=== PATIENT | female | born 1990 | race Caucasian/White ===

== ENCOUNTER 2016-08-30 10:31 | Emergency (ER) | payer OTHER ==
[2016-08-30 10:49] VITALS: BP 137/90
--- NOTE | 2016-08-30 11:16 | EDM.PDOC ---
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 Patient should be approximately 6 weeks at this juncture and indicated she started spotting yesterday and the painless bleeding has been intermittent thru today.] Review of systems: As per history of present illness and below otherwise all systems reviewed and negative. Past medical history: As per history of present illness and as reviewed below otherwise noncontributory. Surgical history: As per history of present illness and as reviewed below otherwise noncontributory. Social history: No reported history of drug or alcohol abuse. Family history: As per history of present illness and as reviewed below otherwise noncontributory. Physical exam: HEENT: Atraumatic, normocephalic, pupils reactive, negative for conjunctival pallor or scleral icterus, mucous membranes moist, throat clear, neck supple, nontender, trachea midline. Lungs: Clear to auscultation, breath sounds equal bilaterally, chest nontender. Heart: S1S2, regular, negative for clicks, rubs, or JVD. Abdomen: Soft, nondistended, nontender. Negative for masses or hepatosplenomegaly. Negative for costovertebral tenderness. Pelvis: Stable nontender. Genitourinary: Deferred. Rectal: Deferred. Extremities: Atraumatic, negative for cords or calf pain. Neurovascular unremarkable. Neuro: Awake, alert, oriented. Cranial nerves II through XII unremarkable. Cerebellum unremarkable. Motor and sensory unremarkable throughout. Exam nonfocal. Diagnostics: [CBC, CMP, Rh, UA, hCG, a transvaginal ultrasound] Therapeutics: [Again 300 Max IM] Impression: [Threatened AB] Plan: [Progress followup with IVF doctor tomorrow] Definitive disposition and diagnosis as appropriate pending reevaluation and review of above. 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: Reports: Endometrial ablation, Endometriosis, Polycystic Ovaries Social & Family History - Family History Family Medical History: Noncontributory - Tobacco Use Smoking Status *Q: Never Smoker - Recreational Drug Use Recreational Drug Use: No ED ROS GENERAL - Review of Systems Review Of Systems: See Below (See history of present illness) ED EXAM, GENERAL - Physical Exam Exam: See Below (See history of present illness) Course - Vital Signs Last Recorded V/S: Last Vital Signs Temp 36.2 C 08/30/16 10:46 Pulse 113 H 08/30/16 10:46 Resp 18 08/30/16 10:46 BP 137/90 08/30/16 10:46 Pulse Ox 97 08/30/16 10:46 - Orders/Labs/Meds Orders: Active Orders 24 hr Category Date Time Status OB 1st Tri Sgl 1st Gest [US] Stat Exams 08/30/16 10:32 Taken Labs: Laboratory Tests 08/30/16 08/30/16 08/30/16 Range/Units 10:35 10:35 10:46 WBC 8.70 (4.0-11.0) K/uL RBC 5.23 (4.30-5.90) M/uL Hgb 15.8 (12.0-16.0) g/dL Hct 45.1 (36.0-46.0) % MCV 86.2 (80.0-98.0) fL MCH 30.2 (27.0-32.0) pg MCHC 35.0 (31.0-37.0) g/dL RDW Std Deviation 38.3 (28.0-62.0) fl RDW Coeff of Jacqui 12 (11.0-15.0) % Plt Count 242 (150-400) K/uL MPV 8.80 (7.40-12.00) fL Neut % (Auto) 75.7 (48.0-80.0) % Lymph % (Auto) 10.5 L (16.0-40.0) % Swisher % (Auto) 10.2 (0.0-15.0) % Eos % (Auto) 3.3 (0.0-7.0) % Baso % (Auto) 0.3 (0.0-1.5) % Neut # 6.6 H (1.4-5.7) K/uL Lymph # 0.9 (0.6-2.4) K/uL Swisher # 0.9 H (0.0-0.8) K/uL Eos # 0.3 (0.0-0.7) K/uL Baso # 0.0 (0.0-0.1) K/uL HCG, Quant mIU/mL Urine Color YELLOW Urine Appearance CLEAR Urine pH 5.5 (5.0-8.0) Ur Specific Yoder <= 1.005 (1.001-1.035) Urine Protein NEGATIVE (NEGATIVE) mg/dL Urine Glucose (UA) NEGATIVE (NEGATIVE) mg/dL Urine Ketones NEGATIVE (NEGATIVE) mg/dL Urine Occult Blood LARGE H (NEGATIVE) Urine Nitrite NEGATIVE (NEGATIVE) Urine Bilirubin NEGATIVE (NEGATIVE) Urine Urobilinogen 0.2 (<2.0) EU/dL Ur Leukocyte Esterase NEGATIVE (NEGATIVE) Urine RBC 0-1 (0-2/HPF) Urine WBC 1-2 (0-5/HPF) Ur Epithelial Cells RARE (NONE-FEW) Urine Bacteria RARE (NEGATIVE) Urine HCG, Qual POSITIVE (NEGATIVE) Blood Type Antibody Screen 08/30/16 08/30/16 Range/Units 10:46 10:46 WBC (4.0-11.0) K/uL RBC (4.30-5.90) M/uL Hgb (12.0-16.0) g/dL Hct (36.0-46.0) % MCV (80.0-98.0) fL MCH (27.0-32.0) pg MCHC (31.0-37.0) g/dL RDW Std Deviation (28.0-62.0) fl RDW Coeff of Jacqui (11.0-15.0) % Plt Count (150-400) K/uL MPV (7.40-12.00) fL Neut % (Auto) (48.0-80.0) % Lymph % (Auto) (16.0-40.0) % [place] % (Auto) (0.0-15.0) % Eos % (Auto) (0.0-7.0) % Baso % (Auto) (0.0-1.5) % Neut # (1.4-5.7) K/uL Lymph # (0.6-2.4) K/uL Swisher # (0.0-0.8) K/uL Eos # (0.0-0.7) K/uL Baso # (0.0-0.1) K/uL HCG, Quant 965.4 mIU/mL Urine Color Urine Appearance Urine pH (5.0-8.0) Ur Specific Yoder (1.001-1.035) Urine Protein (NEGATIVE) mg/dL Urine Glucose (UA) (NEGATIVE) mg/dL Urine Ketones (NEGATIVE) mg/dL Urine Occult Blood (NEGATIVE) Urine Nitrite (NEGATIVE) Urine Bilirubin (NEGATIVE) Urine Urobilinogen (<2.0) EU/dL Ur Leukocyte Esterase (NEGATIVE) Urine RBC (0-2/HPF) Urine WBC (0-5/HPF) Ur Epithelial Cells (NONE-FEW) Urine Bacteria (NEGATIVE) Urine HCG, Qual (NEGATIVE) Blood Type A NEGATIVE Antibody Screen NEGATIVE Meds: Medications Discontinued Medications Generic Name Dose Route Start Last Admin Trade Name Lawrenceq PRN Reason Stop Dose Admin Rho Immune Globulin 300 mcg 08/30/16 11:54 Rhophylac IM 08/30/16 11:55 ONETIME ONE Rho Immune Globulin 300 mcg 08/30/16 12:27 Rhophylac IM 08/30/16 12:28 ONETIME ONE Rho Immune Globulin 300 mcg 08/30/16 13:00 Rhophylac IM 08/30/16 13:01 ONETIME ONE Departure - Departure Time of Disposition: 12:03 Disposition: Home, Self-Care 01 Condition: good Clinical Impression: Threatened Instructions: Threatened Miscarriage Referrals: PCP,None [Primary Care Provider] - Forms: ED Department Discharge Additional Instructions: The following information is given to patients seen in the emergency department who are being discharged to home. This information is to outline your options for follow-up care. We provide all patients seen in our emergency department with a follow-up referral. The need for follow-up, as well as the timing and circumstances, are variable depending upon the specifics of your emergency department visit. If you don't have a primary care physician on staff, we will provide you with a referral. We always advise you to contact your personal physician following an emergency department visit to inform them of the circumstance of the visit and for follow-up with them and/or the need for any referrals to a consulting specialist. The emergency department will also refer you to a specialist when appropriate. This referral assures that you have the opportunity for follow-up care with a specialist. All of these measure are taken in an effort to provide you with optimal care, which includes your follow-up. Under all circumstances we always encourage you to contact your private physician who remains a resource for coordinating your care. When calling for follow-up care, please make the office aware that this follow-up is from your recent emergency room visit. If for any reason you are refused follow-up, please contact the [facility] Emergency Department at and asked to speak to the emergency department charge nurse. Followup with your doctor tomorrow Complete pelvic rest Return to ED as needed as discussed <Ute Zuniga - Last Filed: 08/30/16 15:40> ED HPI GENERAL MEDICAL PROBLEM - History of Present Illness INITIAL COMMENTS - FREE TEXT/NARRATIVE: Please note pt. was given RhoGam for A- status.
[2016-08-30] MEDS ORDERED: Rho(D) Immune Globulin 300 MCG/2 ML Syringe IM ONE ×3 (11:54→13:00)
--- NOTE | 2016-08-31 16:55 | US ---
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 Site : 1990 Study: US OB Pelvis [id number]/26/2017 11:20:05 AM Ordering Physician: Doctor Simental Final Report: Indication : IVF 1 month ago. Bleeding for 3 days. FINDINGS: An endovaginal pelvic ultrasound shows a uterus of normal size, contour, echogenicity. Mild heterogeneity of the endometrial stripe which measures 1.2 cm in thickness. No fluid collections in the endometrial canal. Normal appearance of the ovaries with the right ovary measuring 4.7 x 3.6 x 1.9 cm and left ovary measuring 3.1 x 2.9 x 1.9 cm. Color and spectral Doppler analysis shows normal arterial venous blood flow to both ovaries. No free fluid in the pelvis. IMPRESSION: Mild heterogeneity of the endometrial canal which is a nonspecific finding. No intra or extra uterine identified. An ectopic cannot be excluded based on this study. Recommend continued close interval sonographic laboratory followup. Dictated by Tim Olmos MD @ 08/30/2016 11:53:07 AM Dictated by: Tim Olmos MD @ 08/30/2016 11:53:16 (Electronic Signature) Report Signed by Proxy and Original Signed Document filed in the Medical Record. [facility]
== END 2016-08-30 13:07 | disposition home or self-care (01) ==
LOC: MW.ED 10:31
DX: O20.0 Threatened abortion (principal); Z79.899 Other long term (current) drug therapy
CPT/HCPCS: 36415; 76801; 81001; 81025; 84702; 85025; 86850; 86900; 86901; 96372; 99284; J2790; 99283

== ENCOUNTER 2017-02-16 07:32 | Emergency (ER) | payer OTHER ==
[2017-02-16] MEDS ORDERED: Sodium Chloride 0.9% 10 ML Syringe FLUSH PRN (07:42)
[2017-02-16] MEDS ORDERED: Sodium Chloride 0.9% 2.5 ML Syringe FLUSH PRN (07:42)
[2017-02-16] MEDS ORDERED: Sodium Chloride 0.9% 1,000 ML IV ONE (07:42)
--- NOTE | 2017-02-16 07:44 | EDM.PDOC ---
[id number]: 15 WEEKS - BLEEDING BUT NO PAIN Time Seen by Provider: 02/16/17 07:35 Source of Information: Reports: Patient History Limitations: Reports: No Limitations - History of Present Illness INITIAL COMMENTS - FREE TEXT/NARRATIVE: History of present illness: []Patient's 15 weeks via IVF [place] and started bleeding this morning. She denies passing any clots or tissue and has no pain or cramping. She denies any trauma, fevers or diarrhea. Patient does have nausea and vomiting. Patient had an ultrasound in [place] days ago showing a subchorionic hemorrhage she had no bleeding at that time. Review of systems: As per history of present illness and below otherwise all systems reviewed and negative. Past medical history: As per history of present illness and as reviewed below otherwise noncontributory. Surgical history: As per history of present illness and as reviewed below otherwise noncontributory. Social history: No reported history of drug or alcohol abuse. Family history: As per history of present illness and as reviewed below otherwise noncontributory. Physical exam: General: Well developed, well nourished in NAD HEENT: Atraumatic, normocephalic, pupils reactive, negative for conjunctival pallor or scleral icterus, mucous membranes moist, throat clear, neck supple, nontender, trachea midline. Lungs: Clear to auscultation, breath sounds equal bilaterally, chest nontender. Heart: S1S2, regular, negative for clicks, rubs, or JVD. Abdomen: Soft, nondistended, nontender. Negative for masses or hepatosplenomegaly. Negative for costovertebral tenderness. Pelvis: Stable nontender. Genitourinary: Pelvic showed moderate amount of liquid blood in the vaginal vault mucus plugging is noted on the cervical os clots or tissue noted. Rectal: Deferred. Extremities: Atraumatic, negative for cords or calf pain. Neurovascular unremarkable. Neuro: Awake, alert, oriented. Cranial nerves II through XII unremarkable. Cerebellum unremarkable. Motor and sensory unremarkable throughout. Exam nonfocal. Diagnostics: []CBC normal ultrasound done showing viable twin gestations Rh- Therapeutics: [rhogam given Impression: []Subchorionic hemorrhage, threatened Plan: []Follow with OB Definitive disposition and diagnosis as appropriate pending reevaluation and review of above. 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: Endometrial Ablation, Endometriosis, Polycystic Ovaries Social & Family History - Family History Family Medical History: Noncontributory - Tobacco Use Smoking Status *Q: Never Smoker - Recreational Drug Use Recreational Drug Use: No ED ROS GENERAL - Review of Systems Review Of Systems: See Below (History of present illness) ED EXAM - Physical Exam Exam: See Below (See history of present illness) Course - Vital Signs Last Recorded V/S: Last Vital Signs Temp 36.7 C 02/16/17 07:42 Pulse 90 02/16/17 07:42 Resp 16 02/16/17 07:42 BP 102/84 02/16/17 07:42 Pulse Ox 100 02/16/17 07:42 - Orders/Labs/Meds Orders: Active Orders 24 hr Category Date Time Status Rho(D) Immune Globulin [Rhophylac] Med 02/16/17 08:53 Once 300 mcg IM ONETIME ONE Sodium Chloride 0.9% [Saline Flush] Med 02/16/17 07:42 Active 10 ml FLUSH ASDIRECTED PRN Sodium Chloride 0.9% [Saline Flush] Med 02/16/17 07:42 Active 2.5 ml FLUSH ASDIRECTED PRN Saline Lock Insert [OM.PC] Stat Oth 02/16/17 07:42 Ordered Medication Orders Rho Immune Globulin (Rhophylac) 300 mcg IM ONETIME ONE Stop: 02/16/17 08:54 Sodium Chloride (Saline Flush) 10 ml FLUSH ASDIRECTED PRN PRN Reason: Keep Vein Open Last Admin: 02/16/17 08:48 Dose: 10 ml Sodium Chloride (Saline Flush) 2.5 ml FLUSH ASDIRECTED PRN PRN Reason: Keep Vein Open Last Admin: 02/16/17 08:47 Dose: 2.5 ml Labs: Laboratory Tests 02/16/17 02/16/17 02/16/17 Range/Units 07:53 07:53 07:53 WBC 10.70 (4.0-11.0) K/uL RBC 4.59 (4.30-5.90) M/uL Hgb 13.7 (12.0-16.0) g/dL Hct 39.5 (36.0-46.0) % MCV 86.1 (80.0-98.0) fL MCH 29.8 (27.0-32.0) pg MCHC 34.7 (31.0-37.0) g/dL RDW Std Deviation 42.3 (28.0-62.0) fl RDW Coeff of Jacqui 14 (11.0-15.0) % Plt Count 253 (150-400) K/uL MPV 9.50 (7.40-12.00) fL Neut % (Auto) 67.6 (48.0-80.0) % Lymph % (Auto) 22.9 (16.0-40.0) % [place] % (Auto) 7.3 (0.0-15.0) % Eos % (Auto) 1.9 (0.0-7.0) % Baso % (Auto) 0.3 (0.0-1.5) % Neut # (Auto) 7.2 H (1.4-5.7) K/uL Lymph # (Auto) 2.5 H (0.6-2.4) K/uL [place] # (Auto) 0.8 (0.0-0.8) K/uL Eos # (Auto) 0.2 (0.0-0.7) K/uL Baso # (Auto) 0.0 (0.0-0.1) K/uL HCG, Quant 263999.7 mIU/mL Blood Type A NEGATIVE Antibody Screen 02/16/17 Range/Units 07:53 WBC (4.0-11.0) K/uL RBC (4.30-5.90) M/uL Hgb (12.0-16.0) g/dL Hct (36.0-46.0) % MCV (80.0-98.0) fL MCH (27.0-32.0) pg MCHC (31.0-37.0) g/dL RDW Std Deviation (28.0-62.0) fl RDW Coeff of Jacqui (11.0-15.0) % Plt Count (150-400) K/uL MPV (7.40-12.00) fL Neut % (Auto) (48.0-80.0) % Lymph % (Auto) (16.0-40.0) % [place] % (Auto) (0.0-15.0) % Eos % (Auto) (0.0-7.0) % Baso % (Auto) (0.0-1.5) % Neut # (Auto) (1.4-5.7) K/uL Lymph # (Auto) (0.6-2.4) K/uL [place] # (Auto) (0.0-0.8) K/uL Eos # (Auto) (0.0-0.7) K/uL Baso # (Auto) (0.0-0.1) K/uL HCG, Quant mIU/mL Blood Type Antibody Screen NEGATIVE Meds: Medications Generic Name Dose Route Start Last Admin Trade Name Freq PRN Reason Stop Dose Admin Rho Immune Globulin 300 mcg 02/16/17 08:53 Rhophylac IM 02/16/17 08:54 ONETIME ONE Sodium Chloride 10 ml 02/16/17 07:42 02/16/17 08:48 Saline Flush FLUSH 10 ml ASDIRECTED PRN Administration Keep Vein Open Sodium Chloride 2.5 ml 02/16/17 07:42 02/16/17 08:47 Saline Flush FLUSH 2.5 ml ASDIRECTED PRN Administration Keep Vein Open Discontinued Medications Generic Name Dose Route Start Last Admin Trade Name Freq PRN Reason Stop Dose Admin Sodium Chloride 1,000 mls @ 999 mls/hr 02/16/17 07:42 02/16/17 08:47 Normal Saline IV 02/16/17 08:42 999 mls/hr .Bolus ONE Administration Departure - Departure Time of Disposition: 09:47 Disposition: Home, Self-Care 01 Condition: Good Clinical Impression: Threatened Subchorionic bleed Qualifiers: Fetus number: single or unspecified fetus Trimester: second trimester Qualified Code(s): O41.8X20 - Other specified disorders of amniotic fluid and membranes, second trimester, not applicable or unspecified; O46.8X2 - Other antepartum hemorrhage, second trimester - Discharge Information Forms: ED Department Discharge Additional Instructions: The following information is given to patients seen in the emergency department who are being discharged to home. This information is to outline your options for follow-up care. We provide all patients seen in our emergency department with a follow-up referral. The need for follow-up, as well as the timing and circumstances, are variable depending upon the specifics of your emergency department visit. If you don't have a primary care physician on staff, we will provide you with a referral. We always advise you to contact your personal physician following an emergency department visit to inform them of the circumstance of the visit and for follow-up with them and/or the need for any referrals to a consulting specialist. The emergency department will also refer you to a specialist when appropriate. This referral assures that you have the opportunity for follow-up care with a specialist. All of these measure are taken in an effort to provide you with optimal care, which includes your follow-up. Under all circumstances we always encourage you to contact your private physician who remains a resource for coordinating your care. When calling for follow-up care, please make the office aware that this follow-up is from your recent emergency room visit. If for any reason you are refused follow-up, please contact the [facility] Emergency Department at and asked to speak to the emergency department charge nurse. [facility] - [facility] [address] [place] [id number] [facility] [address] [place] [phone] - My Orders Last 24 Hours: My Active Orders 02/16/17 07:42 Sodium Chloride 0.9% [Saline Flush] 10 ml FLUSH ASDIRECTED PRN Sodium Chloride 0.9% [Saline Flush] 2.5 ml FLUSH ASDIRECTED PRN Saline Lock Insert [OM.PC] Stat 02/16/17 08:53 Rho(D) Immune Globulin [Rhophylac] 300 mcg IM ONETIME ONE - Assessment/Plan Last 24 Hours: My Active Orders 02/16/17 07:42 Sodium Chloride 0.9% [Saline Flush] 10 ml FLUSH ASDIRECTED PRN Sodium Chloride 0.9% [Saline Flush] 2.5 ml FLUSH ASDIRECTED PRN Saline Lock Insert [OM.PC] Stat 02/16/17 08:53 Rho(D) Immune Globulin [Rhophylac] 300 mcg IM ONETIME ONE
--- NOTE | 2017-02-16 08:46 | US ---
Maternal sonogram/history bleeding Multiple axial and transverse sections of the maternal pelvis demonstrated twin intrauterine gestati on. Twin A is in vertex presentation. Twin B is in transverse lie head on the maternal right. There are both anterior and posterior placentas. The anterior placenta stops short of the endocervical os, but there is a subchorionic hemorrhage with thrombus and liquid blood. This is of modest size. Ther e is no evidence of associated placenta previa. The soft tissue density immediately subjacent to the endocervical os is thrombus with liquefied blood adjacent. The twins are alive and demonstrate normal cardiac and somatic activity. Measurements reveal twin a to measure 15 weeks 2 days ultrasound age estimated weight of 113 g. Twin B measures 15 weeks 4 days ultrasound age and estimated weight is 123 g. There is no effacement, the cervical length measuring 2.83 cm Impression: Live twin intrauterine gestation as described above with associated subchorionic hemorrh age from the anterior placenta as described
[2017-02-16] MEDS ORDERED: Rho(D) Immune Globulin 300 MCG/2 ML Syringe IM ONE (08:53)
[2017-02-16 10:07] VITALS: BP 116/74
== END 2017-02-16 10:06 | disposition home or self-care (01) ==
LOC: MW.ED 07:32
DX: O20.0 Threatened abortion (principal); Z3A.15 15 weeks gestation of pregnancy
CPT/HCPCS: 36415; 76817; 84702; 85025; 86850; 86900; 86901; 96372; 99284; J2790; J7040; 99283